=== PATIENT | female | born 1980 | race American Indian/Alaskan Native ===

== ENCOUNTER 2019-09-17 21:21 | Emergency (ER) | payer SELFPAY ==
--- NOTE | 2019-09-17 21:44 | Emergency Department Report ---
Blank Doc - Documentation Documentation: 39-year-old female that presents with abdominal pain with n/v. This initial assessment/diagnostic orders/clinical plan/treatment(s) is/are subject to change based on patient's health status, clinical progression and re- assessment by fellow clinical providers in the ED. Further treatment and workup at subsequent clinical providers discretion. Patient/guardians urged not to elope from the ED as their condition may be serious if not clinically assessed and managed. Initial orders include: 1- Patient sent to [facility] for further evaluation and treatment 2- labs 3- UA
[2019-09-17] MEDS ORDERED: ONDANSETRON 4 MG ODT TAB PO ONE (21:47)
[2019-09-17] MEDS ORDERED: ONDANSETRON 4 MG ODT TAB ONE (21:49)
[2019-09-17] MEDS ORDERED: diphenhydrAMINE 50 MG/ML VIAL IV ONE (22:26)
[2019-09-17] MEDS ORDERED: MORPHINE 4 MG/1 ML INJ IV ONE (22:26)
[2019-09-17] MEDS ORDERED: SODIUM CHLORIDE 0.9% 1000 ML 1,000 ML IV ONE (22:26)
[2019-09-17] MEDS ORDERED: METOCLOPRAMIDE 10 MG/2 ML INJ IV ONE (22:26)
--- NOTE | 2019-09-17 22:31 | Emergency Department Report ---
ED General Adult HPI - General Chief complaint: Abdominal Pain Stated complaint: ABD PAIN Time Seen by Provider: 09/17/19 21:44 Source: patient Mode of arrival: Ambulatory Limitations: No Limitations - History of Present Illness Initial comments: She presents to the emergency department with a chief complaint of abdominal pain that started upon awakening this morning. Patient also complains of some nausea with vomiting as well. Patient points to her upper abdomen for the location of the pain. She describes the pain as sharp in nature without radi ation. Patient has chest pain, shortness breath, or headache. -: Sudden Location: abdomen Radiation: non-radiation Severity scale (0 -10): 7 Quality: sharp Consistency: constant Improves with: none Worsens with: none Associated Symptoms: nausea/vomiting Treatments Prior to Arrival: none - Related Data Previous Rx's Medication Instructions Recorded Last Taken Type Acetaminophen/Codeine [Tylenol 1 tab PO Q6H PRN #15 tab 09/18/19 Unknown Rx /Codeine # 3 tab] Ondansetron [Zofran Odt] 4 mg PO Q4HR PRN #20 tab.rapdis 09/18/19 Unknown Rx Promethazine [Phenergan TAB] 25 mg PO Q6HR PRN #20 tab 09/18/19 Unknown Rx Sulfamethoxazole/Trimethoprim 1 each PO BID #14 tablet 09/18/19 Unknown Rx [Bactrim DS TAB] Allergies Allergy/AdvReac Type Severity Reaction Status Date / Time Surgical Tape Allergy Itching Uncoded 09/17/19 21:37 ED Review of Systems ROS: Stated complaint: ABD PAIN Other details as noted in HPI Comment: All other systems reviewed and negative Constitutional: denies: chills, fever Eyes: denies: eye pain, eye discharge, vision change ENT: denies: ear pain, throat pain Respiratory: denies: cough, shortness of breath, wheezing Cardiovascular: denies: chest pain, palpitations Endocrine: no symptoms reported Gastrointestinal: abdominal pain, nausea, vomiting. denies: diarrhea Genitourinary: denies: urgency, dysuria, discharge Musculoskeletal: denies: back pain, joint swelling, arthralgia Skin: denies: rash, lesions Neurological: denies: headache, weakness, paresthesias Psychiatric: denies: anxiety, depression Hematological/Lymphatic: denies: easy bleeding, easy bruising ED Past Medical Hx - Past Medical History Previous Medical History?: Yes Hx Hypertension: Yes - Surgical History Past Surgical History?: No - Social History Smoking Status: Current Every Day Smoker Substance Use Type: Alcohol - Medications Home Medications: Home Medications Medication Instructions Recorded Confirmed Last Taken Type Acetaminophen/Codeine [Tylenol 1 tab PO Q6H PRN #15 tab 09/18/19 Unknown Rx /Codeine # 3 tab] Ondansetron [Zofran Odt] 4 mg PO Q4HR PRN #20 tab.rapdis 09/18/19 Unknown Rx Promethazine [Phenergan TAB] 25 mg PO Q6HR PRN #20 tab 09/18/19 Unknown Rx Sulfamethoxazole/Trimethoprim 1 each PO BID #14 tablet 09/18/19 Unknown Rx [Bactrim DS TAB] ED Physical Exam - General Limitations: No Limitations General appearance: alert, in no apparent distress - Head Head exam: Present: atraumatic, normocephalic - Eye Eye exam: Present: normal appearance, PERRL Pupils: Present: normal accommodation - ENT ENT exam: Present: mucous membranes dry - Neck Neck exam: Present: normal inspection - Respiratory Respiratory exam: Present: normal lung sounds bilaterally. Absent: respiratory distress - Cardiovascular Cardiovascular Exam: Present: regular rate, normal rhythm. Absent: systolic murmur, diastolic murmur, rubs, gallop - GI/Abdominal GI/Abdominal exam: Present: soft, tenderness (ttp ruq/epigastric region), normal bowel sounds. Absent: distended - Extremities Exam Extremities exam: Present: normal inspection - Back Exam Back exam: Present: normal inspection - Neurological Exam Neurological exam: Present: alert, oriented X3 - Psychiatric Psychiatric exam: Present: normal affect, normal mood - Skin Skin exam: Present: warm, dry, intact, normal color. Absent: rash ED Course Vital Signs 09/17/19 09/17/19 21:31 22:07 Temperature 98.6 F 99 F Pulse Rate 92 H 67 Respiratory 20 17 Rate Blood Pressure 192/124 Blood Pressure 205/115 [Right] O2 Sat by Pulse 98 98 Oximetry ED Medical Decision Making - Lab Data Result diagrams: 09/17/19 22:28 09/17/19 22:28 Lab Results 09/17/19 09/17/19 09/17/19 Range/Units 22:28 22:28 22:28 WBC 6.0 (4.5-11.0) K/mm3 RBC 3.56 L (3.65-5.03) M/mm3 Hgb 9.6 L (10.1-14.3) gm/dl Hct 30.7 (30.3-42.9) % MCV 86 (79-97) fl MCH 27 L (28-32) pg MCHC 31 (30-34) % RDW 18.1 H (13.2-15.2) % Plt Count 356 (140-440) K/mm3 Lymph % (Auto) 42.1 H (13.4-35.0) % [place] % (Auto) 7.5 H (0.0-7.3) % Eos % (Auto) 9.0 H (0.0-4.3) % Baso % (Auto) 0.8 (0.0-1.8) % Lymph # 2.5 (1.2-5.4) K/mm3 [place] # 0.5 (0.0-0.8) K/mm3 Eos # 0.5 H (0.0-0.4) K/mm3 Baso # 0.0 (0.0-0.1) K/mm3 Seg Neutrophils % 40.6 (40.0-70.0) % Seg Neutrophils # 2.4 (1.8-7.7) K/mm3 Sodium 140 (137-145) mmol/L Potassium 4.0 (3.6-5.0) mmol/L Chloride 106.1 (98-107) mmol/L Carbon Dioxide 22 (22-30) mmol/L Anion Gap 16 mmol/L BUN 6 L (7-17) mg/dL Creatinine 0.8 (0.7-1.2) mg/dL Estimated GFR > 60 ml/min BUN/Creatinine Ratio 8 % Glucose 91 (65-100) mg/dL Calcium 8.6 (8.4-10.2) mg/dL Total Bilirubin 0.40 (0.1-1.2) mg/dL AST 15 (5-40) units/L ALT 13 (7-56) units/L Alkaline Phosphatase 76 (35-129) units/L Total Protein 6.7 (6.3-8.2) g/dL Albumin 4.1 (3.9-5) g/dL Albumin/Globulin Ratio 1.6 % Lipase 17 (13-60) units/L HCG, Qual Negative (Negative) Urine Color (Yellow) Urine Turbidity (Clear) Urine pH (5.0-7.0) Ur Specific [place] (1.003-1.030) Urine Protein (Negative) mg/dL Urine Glucose (UA) (Negative) mg/dL Urine Ketones (Negative) mg/dL Urine Blood (Negative) Urine Nitrite (Negative) Urine Bilirubin (Negative) Urine Urobilinogen (<2.0) mg/dL Ur Leukocyte Esterase (Negative) Urine WBC (Auto) (0.0-6.0) /HPF Urine RBC (Auto) (0.0-6.0) /HPF U Epithel Cells (Auto) (0-13.0) /HPF Urine Mucus /HPF 09/17/19 Range/Units 22:30 WBC (4.5-11.0) K/mm3 RBC (3.65-5.03) M/mm3 Hgb (10.1-14.3) gm/dl Hct (30.3-42.9) % MCV (79-97) fl MCH (28-32) pg MCHC (30-34) % RDW (13.2-15.2) % Plt Count (140-440) K/mm3 Lymph % (Auto) (13.4-35.0) % [place] % (Auto) (0.0-7.3) % Eos % (Auto) (0.0-4.3) % Baso % (Auto) (0.0-1.8) % Lymph # (1.2-5.4) K/mm3 [place] # (0.0-0.8) K/mm3 Eos # (0.0-0.4) K/mm3 Baso # (0.0-0.1) K/mm3 Seg Neutrophils % (40.0-70.0) % Seg Neutrophils # (1.8-7.7) K/mm3 Sodium (137-145) mmol/L Potassium (3.6-5.0) mmol/L Chloride (98-107) mmol/L Carbon Dioxide (22-30) mmol/L Anion Gap mmol/L BUN (7-17) mg/dL Creatinine (0.7-1.2) mg/dL Estimated GFR ml/min BUN/Creatinine Ratio % Glucose (65-100) mg/dL Calcium (8.4-10.2) mg/dL Total Bilirubin (0.1-1.2) mg/dL AST (5-40) units/L ALT (7-56) units/L Alkaline Phosphatase (35-129) units/L Total Protein (6.3-8.2) g/dL Albumin (3.9-5) g/dL Albumin/Globulin Ratio % Lipase (13-60) units/L HCG, Qual (Negative) Urine Color Yellow (Yellow) Urine Turbidity Clear (Clear) Urine pH 7.0 (5.0-7.0) Ur Specific [place] 1.019 (1.003-1.030) Urine Protein <15 mg/dl (Negative) mg/dL Urine Glucose (UA) Neg (Negative) mg/dL Urine Ketones Neg (Negative) mg/dL Urine Blood Neg (Negative) Urine Nitrite Neg (Negative) Urine Bilirubin Neg (Negative) Urine Urobilinogen < 2.0 (<2.0) mg/dL Ur Leukocyte Esterase Tr (Negative) Urine WBC (Auto) 15.0 H (0.0-6.0) /HPF Urine RBC (Auto) 2.0 (0.0-6.0) /HPF U Epithel Cells (Auto) 1.0 (0-13.0) /HPF Urine Mucus Few /HPF - Radiology Data Radiology results: report reviewed - Medical Decision Making Results discussed with patient patient states she is improved after meds and IVFs Critical care attestation.: If time is entered above; I have spent that time in minutes in the direct care of this critically ill patient, excluding procedure time. ED Disposition Clinical Impression: Abdominal pain, UTI (urinary tract infection) Disposition: TO HOME OR SELFCARE Is pt being admited?: No Does the pt Need Aspirin: No Condition: Stable Instructions: Abdominal Pain (ED), Urinary Tract Infection in Women (ED) Additional Instructions: return if worse Referrals: [facility] [Provider Group] - 3-5 Days [facility] [Provider Group] - 3-5 Days Time of Disposition: 00:12
[2019-09-17 22:52] LABS: Bilirubin,Urine NEG (Negative); Blood,Urine NEG (Negative); Color,Urine Yellow (Yellow); Mucus,Urine FEW /HPF; Protein,Urine <15 mg/dL mg/dL (Negative); Urobilinogen,Urine < 2.0 mg/dL (<2.0)
[2019-09-17 23:05] LABS: Basophils % (Auto) 0.8 % (0.0-1.8); Eosinophils # (Auto) 0.5 K/mm3 (0.0-0.4); Hematocrit 30.7 % (30.3-42.9); Hemoglobin 9.6 gm/dl (10.1-14.3); Lymphocytes # (Auto) 2.5 K/mm3 (1.2-5.4); Lymphocytes % (Auto) 42.1 % (13.4-35.0); Mean Corpuscular HGB Conc 31 % (30-34); Mean Corpuscular Volume 86 fl (79-97); Monocytes # (Auto) 0.5 K/mm3 (0.0-0.8); Monocytes % (Auto) 7.5 % (0.0-7.3); Platelet Count 356 K/mm3 (140-440); Red Blood Count 3.56 M/mm3 (3.65-5.03); Red Cell Distribution Width 18.1 % (13.2-15.2)
[2019-09-17 23:23] LABS: Alanine Aminotransferase 13 units/L (7-56); Albumin 4.1 g/dL (3.9-5); BUN/Creatinine Ratio 8; Blood Urea Nitrogen 6 mg/dL (7-17); Calcium 8.6 mg/dL (8.4-10.2); Hemolysis Index 3
--- NOTE | 2019-09-17 23:41 | Ultrasound Report ---
ULTRASOUND ABDOMEN, LIMITED (RIGHT UPPER QUADRANT) INDICATION / CLINICAL INFORMATION: epigastric/rug pain. COMPARISON: None available. FINDINGS: PANCREAS: Visualized portion shows no significant abnormality. LIVER: No significant abnormality. GALLBLADDER: No significant abnormality. No gallstones or gallbladder wall thickening. BILE DUCTS: No significant abnormality. Common bile duct measures 1-2 mm mm. FREE FLUID: None. ADDITIONAL FINDINGS: Right kidney is unremarkable. IMPRESSION: 1. No significant sonographic abnormality of the right upper quadrant. Signer Name: Baylee Vásquez MD Signed: 09/17/2019 11:37 PM Workstation Name: [id number]
[2019-09-18 00:47] VITALS: BP 191/120
== END 2019-09-18 00:47 | disposition home or self-care (01) ==
LOC: ED 21:21
DX: N39.0 Urinary tract infection, site not specified (principal); F17.200 Nicotine dependence, unspecified, uncomplicated
CPT/HCPCS: 36415; 76705; 80053; 81001; 83690; 84703; 85025; 87086; 96361; 96374; 96375; 99284; J1200; J2270; J2765; J7030; Q0162